=== PATIENT | female | born 1965 | race American Indian/Alaskan Native ===

== ENCOUNTER 2017-03-10 13:49 | Inpatient (IN) | payer MEDICARE ==
[2017-03-10 13:49] VITALS: BMI 38.0
[2017-03-10 13:55] VITALS: O2SAT 98
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
--- NOTE | 2017-03-10 15:12 | RAD ---
HISTORY: clearance COMPARISON: None available. TECHNIQUE: Chest, one view. FINDINGS: LUNGS: No focal consolidation. Please note that chest x-ray has limited sensitivity for the detection of pulmonary masses. PLEURA: No significant pleural effusion identified. No definite pneumothorax . CARDIOVASCULAR: The cardiomediastinal silhouette appears within normal limits of size. OSSEOUS STRUCTURES: No acute osseous abnormality identified. VISUALIZED UPPER ABDOMEN: Unremarkable. OTHER FINDINGS: None. IMPRESSION: No focal consolidation, significant pleural effusion, or definite pneumothorax identified.
[2017-03-10 15:39] LABS: RBC URINE 29 /hpf (0-3); URINE BACTERIA MOD (<OCC); URINE BILIRUBIN SMALL (NEGATIVE); URINE COLOR AMBER (YELLOW); URINE GLUCOSE (UA) NEG (Normal); URINE KETONE TRACE mg/dL (NEGATIVE); URINE PROTEIN 100 mg/dL (NEGATIVE); WBC URINE 58 /hpf (0-5)
[2017-03-10 15:42] LABS: URINE BLOOD MODERATE (NEGATIVE); URINE LEUKOCYTE ESTERASE LARGE Leu/uL (Negative)
[2017-03-10 16:13] LABS: BASO # 0.1 K/uL (0.0-0.2); LYMPH # 2.2 K/uL (1.0-4.3); MONO # 0.4 K/uL (0.0-0.8)
[2017-03-10 16:23] LABS: BASO % 0.9 % (0.0-2.0); EOS % 0.3 % (0.0-4.0); HEMATOCRIT 41.3 % (34.0-47.0); LYMPH % 31.4 % (20.0-40.0); MEAN CELL VOLUME 88.6 fl (81.0-99.0); MEAN CORPUSCULAR HEMOGLOBIN 28.6 pg (27.0-31.0); MEAN CORPUSCULAR HGB CONC 32.2 g/dL (33.0-37.0); MEAN PLATELET VOLUME 9.2 fl (7.2-11.7); MONO % 5.7 % (0.0-10.0); NEUT # 4.3 K/uL (1.8-7.0); NEUT % 61.7 % (50.0-75.0); RED CELL DISTRIBUTION WIDTH 13.9 % (11.5-14.5)
[2017-03-10 17:09] LABS: ALB/GLOB RATIO 1.3 (1.0-2.1); ALCOHOL SERUM < 10 mg/dl (0-10); ALKALINE PHOSPHATASE 62 U/L (38-126); ALT/SGPT 27 U/L (9-52); AST/SGOT 29 U/L (14-36); BILIRUBIN,TOTAL 0.5 mg/dl (0.2-1.3); BLOOD UREA NITROGEN 21 mg/dl (7-17); CALCIUM 10.2 mg/dL (8.4-10.2); CARBON DIOXIDE 25 mmol/L (22-30); CHLORIDE 101 mmol/L (98-107); GFR AFRICAN-AMERICAN 38; GLUCOSE,RANDOM 81 mg/dL (65-105); POTASSIUM 4.9 MMOL/L (3.6-5.0); SODIUM 137 mmol/l (132-148); TOTAL PROTEIN 8.3 G/DL (6.3-8.2)
[2017-03-11] MEDS ORDERED: Magnesium Hydroxide Susp 30 ml UD PO PRN (01:11)
[2017-03-11] MEDS ORDERED: DiphenhydrAMINE 50 mg/ml Inj IM PRN (01:11)
[2017-03-11 07:05] LABS: BASO % 0.9 % (0.0-2.0); EOS # 0.1 K/uL (0.0-0.7); EOS % 1.9 % (0.0-4.0); LYMPH # 2.1 K/uL (1.0-4.3); LYMPH % 47.1 % (20.0-40.0); MEAN CELL VOLUME 88.5 fl (81.0-99.0); MEAN CORPUSCULAR HEMOGLOBIN 28.3 pg (27.0-31.0); MONO # 0.6 K/uL (0.0-0.8); MONO % 14.1 % (0.0-10.0); NEUT # 1.6 K/uL (1.8-7.0); NRBC % 0.2 % (0.0-0.0); RED CELL DISTRIBUTION WIDTH 14.2 % (11.5-14.5); WHITE BLOOD COUNT 4.5 K/uL (4.8-10.8)
[2017-03-11 07:16] LABS: ALB/GLOB RATIO 1.3 (1.0-2.1); BILIRUBIN,TOTAL 0.4 mg/dl (0.2-1.3); CALCIUM 9.5 mg/dL (8.4-10.2); POTASSIUM 4.3 MMOL/L (3.6-5.0); TOTAL PROTEIN 7.1 G/DL (6.3-8.2)
[2017-03-11 07:32] LABS: T4 7.65 ug/dl (5.5-11.0)
[2017-03-11 07:45] LABS: THYROID STIMULATING HORMONE 2.12 mIU/ML (0.46-4.68)
--- NOTE | 2017-03-11 09:01 | PCM.PSYCH ---
Initial Psychiatric Evaluation - Initial Psychiatric Evaluation Type of Admission: Voluntary Legal Status: Capacity Chief Complaint (in patient's own words): "I've been feeling paranoid." Patient's Reaction to Hospitalization: HPI: 51 yo AA female BIB Mobile crisis for evaluation of auditory hallucinations and paranoid delusions. Pt reports hearing a group of people talking, the details of which she does not want to repeat. She told ER staff that she believes people are out to get her, told to her by her TV and that these unknown people put a tracker in her cell phone. +Poor sleep/appetite. She has not taken any medications or treatment since January 2017. When asked which medications she has taken in the past, she could not recall the names, but when asked about Risperdal, she stated that she does not want to take it because it gave her tremors. PPHS: H/o multiple psychiatric hospitalizations to [facility] [place]. Last known medications were Risperdal, Celexa and Cogentin. MHX: HTN, LUPUS All: Aspirin SHX: [employer], [employer] Current Medications: Active Medications Generic Name Dose Route Start Last Admin Trade Name Freq PRN Reason Stop Dose Admin Acetaminophen 650 mg 03/11/17 01:11 Tylenol 325mg Tab PO Q4 PRN for pain 4-7 Al Hydrox/Mg Hydrox/Simethicone 30 ml 03/11/17 01:11 Maalox Plus 30 Ml PO Q4 PRN Dyspepsia Diphenhydramine HCl 50 mg 03/11/17 01:11 Benadryl IM Q6 PRN Extrapyramidal S/S Unable PO Diphenhydramine HCl 50 mg 03/11/17 01:11 Benadryl PO Q6 PRN Extrapyramidal Symptoms Haloperidol 5 mg 03/11/17 01:11 Haldol PO Q4 PRN Agitation Haloperidol Lactate 5 mg 03/11/17 01:11 Haldol IM Q4 PRN Agitation, Unable to Take PO Lorazepam 2 mg 03/11/17 01:11 Ativan IM Q4 PRN Anxiety/Agitation,Unable PO Lorazepam 2 mg 03/11/17 01:11 Ativan PO Q4 PRN Anxiety/Agitation Magnesium Hydroxide 30 ml 03/11/17 01:11 Milk Of Magnesia PO HS PRN Constipation Past Psychiatric History - Past Psychiatric History Previous Treatment History: Inpatient Pertinent Medical Hx (Current Medical&Sleep Prob, Allergies): Allergies Allergy/AdvReac Type Severity Reaction Status Date / Time aspirin AdvReac NAUSEA Verified 03/10/17 14:05 Clotrimazole 1% Cream [Lotrimin 1%] 30 gm EXT BID #1 tube 06/14/14 Hydroxychloroquine Sulfate [Plaquenil] mg PO DAILY 06/14/14 Nifedipine [Nifedipine ER] mg PO DAILY 06/14/14 Omeprazole [Omeprazole] 40 mg PO DAILY 06/14/14 Prednisolone 10 mg PO DAILY 06/14/14 Tramadol Hydrochloride [Tramadol] 50 mg PO PRN PRN 06/14/14 Review of Systems - Review of Systems All systems: reviewed and no additional remarkable complaints except - Psychiatric Psychiatric: As Per HPI, Abnormal Sleep Pattern, Anxiety, Auditory Hallucinations, Difficulty Concentrating, Paranoia Mental Status Examination - Personal Presentation Personal Presentation: Looks stated age - Affect Affect: Constricted - Motor Activity Motor Activity: Calm - Reliability in Providing Information Reliability in Providing Information: Fair - Speech Speech: Organized - Mood Mood: Anxious - Formal Thought Process Formal Thought Process: Hallucinations, Delusions, Paranoia - Hallucinations/Delusions Hallucinations: Auditory - Obsessions/Compulsions Obsessions: No Compulsions: No - Cognitive Functions Orientation: Person, Place, Situation, Time Sensorium: Alert Attention/Concentration: Attentive Judgement: Intact, as evidence by: Good judgement, Intact, as evidence by: Insight regarding need for hospitalization Memory: Recent intact, as evidence by: Ability to recall events of the day, Remote intact, as evidenced by: Abilit to recall sig. life events, Remote intact , as evidenced by: Ability to recall historical events - Risk Risk: Diminished functioning - Strength & Assets Inventory Strength & Assets Inventory: Cooperative DSM 5 DX - DSM 5 DSM 5 Diagnosis: Schizoaffective Disorder - Recommended/Plan of Treatment Treatment Recommendations and Plan of Treatment: -Admit to psychiatry -Individual and group therapy -Start Seroquel 50 mg PO Daily, will titrate as clinically indicated -Obtain collateral history -Disposition planning Projected ELOS: 5-7 days Discharge Plan and Discharge Criteria: Discharge when psychiatrically stable
--- NOTE | 2017-03-11 14:28 | CP.PCM.CON ---
History of Present Illness - History of Present Illness History of Present Illness: 51 yo female with history of Depression and Lupus admitted to psyche unit because of auditory hallucination. Review of Systems - Review of Systems All systems: reviewed and no additional remarkable complaints except (aside from those mentioned above, 12 point system review were negative by me) Past Patient History - Infectious Disease Hx of Infectious Diseases: None - Tetanus Immunizations Tetanus Immunization: Unknown - Past Medical History & Family History Past Medical History?: No Past Family History: Reviewed and not pertinent - Past Social History Smoking Status: Never Smoked Chewing Tobacco Use: No Cigar Use: No Alcohol: None Drugs: Denies - CARDIAC Hx Cardiac Disorders: No Hx Hypertension: Yes - PULMONARY Hx Respiratory Disorders: No - NEUROLOGICAL Hx Neurological Disorder: No - HEENT Hx HEENT Problems: No - RENAL Hx Chronic Kidney Disease: Yes - ENDOCRINE/METABOLIC Hx Endocrine Disorders: No Hx Systemic Lupus Erythematosus: Yes - HEMATOLOGICAL/ONCOLOGICAL Hx Blood Disorders: No - INTEGUMENTARY Hx Dermatological Problems: No - MUSCULOSKELETAL/RHEUMATOLOGICAL Hx Musculoskeletal Disorders: No - GASTROINTESTINAL Hx Gastritis: Yes - GENITOURINARY/GYNECOLOGICAL Hx Genitourinary Disorders: No - PSYCHIATRIC Hx Anxiety: Yes Hx Depression: Yes - SURGICAL HISTORY Hx Hysterectomy: Yes Meds Allergies/Adverse Reactions: Allergies Allergy/AdvReac Type Severity Reaction Status Date / Time aspirin AdvReac NAUSEA Verified 03/10/17 14:05 - Medications Medications: Current Medications Acetaminophen (Tylenol 325mg Tab) 650 mg PO Q4 PRN PRN Reason: for pain 4-7 Al Hydrox/Mg Hydrox/Simethicone (Maalox Plus 30 Ml) 30 ml PO Q4 PRN PRN Reason: Dyspepsia Diphenhydramine HCl (Benadryl) 50 mg IM Q6 PRN PRN Reason: Extrapyramidal S/S Unable PO Diphenhydramine HCl (Benadryl) 50 mg PO Q6 PRN PRN Reason: Extrapyramidal Symptoms Haloperidol (Haldol) 5 mg PO Q4 PRN PRN Reason: Agitation Haloperidol Lactate (Haldol) 5 mg IM Q4 PRN PRN Reason: Agitation, Unable to Take PO Lorazepam (Ativan) 2 mg IM Q4 PRN PRN Reason: Anxiety/Agitation,Unable PO Lorazepam (Ativan) 2 mg PO Q4 PRN PRN Reason: Anxiety/Agitation Magnesium Hydroxide (Milk Of Magnesia) 30 ml PO HS PRN PRN Reason: Constipation Physical Exam - Constitutional Appears: No Acute Distress - Head Exam Head Exam: ATRAUMATIC - Eye Exam Eye Exam: absent: Scleral icterus - ENT Exam ENT Exam: Mucous Membranes Moist - Neck Exam Neck exam: Negative for: Meningismus - Respiratory Exam Respiratory Exam: absent: Rhonchi, Wheezes, Respiratory Distress - Cardiovascular Exam Cardiovascular Exam: REGULAR RHYTHM, +S1, +S2 - GI/Abdominal Exam GI & Abdominal Exam: Soft. absent: Tenderness - Rectal Exam Rectal Exam: Deferred - Extremities Exam Extremities exam: Negative for: pedal edema - Back Exam Back exam: NORMAL INSPECTION - Neurological Exam Neurological exam: Alert, Oriented x3 - Psychiatric Exam Psychiatric exam: Normal Affect - Skin Skin Exam: Dry, Intact Results - Vital Signs Recent Vital Signs: Last Vital Signs Temp 97.1 F L 03/11/17 06:00 Pulse 81 03/11/17 06:00 Resp 18 03/11/17 06:00 BP 127/84 03/11/17 06:00 Pulse Ox 98 03/10/17 18:30 - Labs Result Diagrams: 03/11/17 06:53 03/11/17 06:53 Labs: Laboratory Results - last 24 hr 03/11/17 03/11/17 06:53 06:53 WBC 4.5 L RBC 4.40 Hgb 12.5 Hct 39.0 MCV 88.5 MCH 28.3 MCHC 32.0 L RDW 14.2 Plt Count 258 MPV 9.0 Neut % (Auto) 36.0 L Lymph % (Auto) 47.1 H Alcorn % (Auto) 14.1 H Eos % (Auto) 1.9 Baso % (Auto) 0.9 Neut # 1.6 L Lymph # 2.1 Alcorn # 0.6 Eos # 0.1 Baso # 0.0 Sodium 137 Potassium 4.3 Chloride 104 Carbon Dioxide 24 Anion Gap 13 BUN 28 H Creatinine 1.6 H Est GFR ( Amer) 41 Est GFR (Non-Af Amer) 34 Random Glucose 92 Calcium 9.5 Total Bilirubin 0.4 AST 28 ALT 27 Alkaline Phosphatase 48 Total Protein 7.1 Albumin 4.0 Globulin 3.1 Albumin/Globulin Ratio 1.3 Thyroxine (T4) 7.65 TSH 3rd Generation 2.12 Assessment & Plan (1) Auditory hallucination Status: Acute Comment: psyche is managing (2) HTN (hypertension) Status: Chronic Comment: BP stable. continue Losartan and HCTZ
--- NOTE | 2017-03-11 19:13 | CARD ---
APPROVED REPORT EKG Measurement Heart [id number] <Conclusion> Normal sinus rhythm Normal ECG
[2017-03-12] MEDS: NIFEdipine 90 mg ER Tab PO SCH (08:40)
--- NOTE | 2017-03-12 13:38 | PCM.PYCHPN ---
Psychiatric Progress Note - Psychiatric Progress Note Patient seen today, length of contact: Patient evaluated, case discussed with team, chart reviewed, 35 min Patient Chief Complaint: "I'm hearing the voices" Problems Identified/Issues Discussed: Patient continues to report hearing auditory hallucinations, but she would not elaborate on what they are saying. She seems internally preoccupied at times. She is distressed by her psychotic symptoms and requests treatment to help calm the voices. Medication Change: Yes (Increase Seroquel to 50 mg PO Q12) Medical Record Reviewed: Yes Consults ordered or reviewed: Medicine consult Mental Status Examination - Cognitive Function Orientation: Person, Place, Situation, Time Memory: Intact Attention: WNL Concentration: WNL Association: WNL Fund of Knowledge: [facility] Decription of patient's judgement and insights: Fair I/J - Mood Mood: Anxious - Affect Affect: Constricted - Speech Speech: Appropriate - Formal Thought Process Formal Thought Process: Hallucinations, Delusions, Paranoia Psychotic Thoughts and Behaviors: +AH, paranoia - Suicidal Ideation Suicidal Ideation: No - Homicidal Ideation Homicidal Ideation: No Goal/Treatment Plan - Goal/Treatment Plan Need for Continued Stay: Remain at risks for inpatient hospitalization, Discharge may exacerbated symptoms Progress Toward Problem(s) and Goals/Treatment Plan: -Individual and group therapy -Increase Seroquel to 50 mg PO Q12 -Obtain collateral history -Disposition planning
[2017-03-12] MEDS: Alum-Mag Hydrox-Simethicone Susp (30 mL) PO PRN (21:15)
[2017-03-13] MEDS: NIFEdipine 90 mg ER Tab PO SCH (09:36)
--- NOTE | 2017-03-13 10:53 | PCM.PYCHPN ---
Psychiatric Progress Note - Psychiatric Progress Note Patient seen today, length of contact: Patient evaluated, case discussed with team, chart reviewed, 35 min Patient Chief Complaint: "I'm hearing the voices, but they are muffled now" Problems Identified/Issues Discussed: Patient continues to report hearing auditory hallucinations, but states that they are muffled. She continues to be psychotic and has told staff about her continued hallucinations, which she believes are her past neighbors that she continues to have paranoid delusions about. She continues to be cooperative with treatment as she would like to get help because she is depressed and distressed by her psychotic symptoms. She seems internally preoccupied at times and spends most of her day isolated in her room, despite encouragement from staff. Medication Change: Yes (Increase Seroquel to 50 mg PO Daily/ 100 mg PO HS) Medical Record Reviewed: Yes Consults ordered or reviewed: Medicine consult Mental Status Examination - Cognitive Function Orientation: Person, Place, Situation, Time Memory: Intact Attention: WNL Concentration: WNL Association: [facility] Fund of Knowledge: [facility] Decription of patient's judgement and insights: Fair I/J - Mood Mood: Anxious - Affect Affect: Constricted - Speech Speech: Appropriate - Formal Thought Process Formal Thought Process: Hallucinations, Delusions, Paranoia Psychotic Thoughts and Behaviors: +AH, paranoia, delusions - Suicidal Ideation Suicidal Ideation: No - Homicidal Ideation Homicidal Ideation: No Goal/Treatment Plan - Goal/Treatment Plan Need for Continued Stay: Remain at risks for inpatient hospitalization, Discharge may exacerbated symptoms Progress Toward Problem(s) and Goals/Treatment Plan: 51 yo female with psychosis, r/o schizophrenia w/ late onset, continues to be psychotic with auditory hallucinations, paranoia and delusions, needs continued inpatient hospitalization for treatment and stabilization. -Individual and group therapy -Increase Seroquel to 50 mg PO Daily/ 100 mg PO HS -Medicine consult appreciated Estimated Date of D/C: 03/19/17 - Smoking Cessation Smoking Cessation Initiated: No Reason for not providing: Not indicated
[2017-03-14] MEDS: NIFEdipine 90 mg ER Tab PO SCH (09:04)
--- NOTE | 2017-03-14 10:05 | PCM.PYCHPN ---
Psychiatric Progress Note - Psychiatric Progress Note Patient seen today, length of contact: Patient evaluated, case discussed with team, chart reviewed, 35 min Patient Chief Complaint: "I'm hearing the voices" Problems Identified/Issues Discussed: Patient continues to report hearing auditory hallucinations, which she finds distressing. She continues to be psychotic and has told staff about her continued hallucinations, which she believes are her past neighbors that she continues to have paranoid delusions about. She continues to be cooperative with treatment and has requested that the seroquel be increased. r/b/se reviewed, patient given a handout with information on seroquel. She seems internally preoccupied at times and spends most of her day isolated in her room , despite encouragement from staff. Medication Change: Yes (Increase Seroquel to 50 mg PO Daily/ 200 mg PO HS) Medical Record Reviewed: Yes Mental Status Examination - Cognitive Function Orientation: Person, Place, Situation, Time Memory: Intact Attention: WNL Concentration: WNL Association: WNL Fund of Knowledge: [facility] Decription of patient's judgement and insights: Fair I/J - Mood Mood: Anxious - Affect Affect: Constricted - Speech Speech: Appropriate - Formal Thought Process Formal Thought Process: Hallucinations, Delusions, Paranoia Psychotic Thoughts and Behaviors: +AH, paranoia, delusions - Suicidal Ideation Suicidal Ideation: No - Homicidal Ideation Homicidal Ideation: No Goal/Treatment Plan - Goal/Treatment Plan Need for Continued Stay: Remain at risks for inpatient hospitalization, Discharge may exacerbated symptoms Progress Toward Problem(s) and Goals/Treatment Plan: 51 yo female with psychosis, r/o schizophrenia w/ late onset, continues to be psychotic with auditory hallucinations, paranoia and delusions, needs continued inpatient hospitalization for treatment and stabilization. -Individual and group therapy -Increase Seroquel to 50 mg PO Daily/ 200 mg PO HS -Medicine consult appreciated Estimated Date of D/C: 03/19/17 - Smoking Cessation Smoking Cessation Initiated: No Reason for not providing: Not indicated
[2017-03-15] MEDS: NIFEdipine 90 mg ER Tab PO SCH (09:27)
--- NOTE | 2017-03-15 13:06 | PCM.PYCHPN ---
Psychiatric Progress Note - Psychiatric Progress Note Patient seen today, length of contact: Patient evaluated, case discussed with team, chart reviewed, 35 min Patient Chief Complaint: "I'm hearing the voices" Problems Identified/Issues Discussed: Patient continues to report hearing auditory hallucinations, stating that she is hearing them as she speaks to the handbook writer and that they often make rude remarks when she is talking. She is paranoid that her neighbors can hear her and refused to discuss certain things. She is also paranoid that there are cameras in the hospital, that have been tapped by her neighbors and they can observe everything she says and does, which is why she has started to wear her clothes all the time. She seems internally preoccupied at times and spends most of her day isolated in her room, despite encouragement from staff. Medication Change: Yes (Increase Seroquel to 50 mg PO Daily/ 250 mg PO HS) Medical Record Reviewed: Yes Mental Status Examination - Cognitive Function Orientation: Person, Place, Situation, Time Memory: Intact Attention: WNL Concentration: WNL Association: WNL Fund of Knowledge: [facility] Decription of patient's judgement and insights: Fair I/J - Mood Mood: Anxious - Affect Affect: Constricted - Speech Speech: Appropriate - Formal Thought Process Formal Thought Process: Hallucinations, Delusions, Paranoia Psychotic Thoughts and Behaviors: +AH, paranoia, delusions - Suicidal Ideation Suicidal Ideation: No - Homicidal Ideation Homicidal Ideation: No Goal/Treatment Plan - Goal/Treatment Plan Need for Continued Stay: Remain at risks for inpatient hospitalization, Discharge may exacerbated symptoms Progress Toward Problem(s) and Goals/Treatment Plan: 51 yo female with psychosis, r/o schizophrenia w/ late onset, continues to be psychotic with auditory hallucinations, paranoia and delusions, needs continued inpatient hospitalization for treatment and stabilization. -Individual and group therapy -Increase Seroquel to 50 mg PO Daily/ 250 mg PO HS -Medicine consult appreciated Estimated Date of D/C: 03/19/17
[2017-03-16] MEDS: NIFEdipine 90 mg ER Tab PO SCH (08:58)
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
[2017-03-16 12:26] LABS: ALB/GLOB RATIO 1.3 (1.0-2.1); BILIRUBIN,TOTAL 0.5 mg/dl (0.2-1.3); CALCIUM 9.2 mg/dL (8.4-10.2); POTASSIUM 4.1 MMOL/L (3.6-5.0); TOTAL PROTEIN 7.3 G/DL (6.3-8.2)
[2017-03-17] MEDS: NIFEdipine 90 mg ER Tab PO SCH (09:21)
--- NOTE | 2017-03-17 15:28 | PCM.PYCHPN ---
Psychiatric Progress Note - Psychiatric Progress Note Patient seen today, length of contact: Pt. evaluated, case discussed with team, chart reviewed, 35 min Patient Chief Complaint: reports better sleep, questionable improvment voices-commentary -seen seated in social area watching tv with peers over past six months since leaving a room she had rented for 4 months (left 2months early from lease) feels as though the persons who rented room have placed a camera in her (pt) phone and tracking her including place camera on current 3ns unit. reports hearing a group of people talking about her, commentary, non command reports voices are getting stronger, reports previously took risperdal and legs began to shake. currently reports that legs are again shaking with seroquel. does wish to continue medications but did defer am seroquel until speaking with provider. pt was seen in unit, walking, did reportedly eat, now was seen laying in bed Problems Identified/Issues Discussed: alteration in perception alteration in thought process Medical Problems: per chart Diagnostic Results: per medicine per psychiatry per social services analyst DSM 5 Symptoms Update: continues commentary voices- Medication Change: No Medical Record Reviewed: Yes Mental Status Examination - Cognitive Function Orientation: Person, Place, Situation, Time Memory: Intact Attention: Poor Concentration: Poor Association: WNL Fund of Knowledge: WNL Decription of patient's judgement and insights: impaired - Mood Mood: Anxious - Affect Affect: Constricted - Speech Speech: Appropriate - Formal Thought Process Formal Thought Process: Hallucinations, Delusions, Paranoia - Suicidal Ideation Suicidal Ideation: No - Homicidal Ideation Homicidal Ideation: No Goal/Treatment Plan - Goal/Treatment Plan Need for Continued Stay: Remain at risks for inpatient hospitalization, Discharge may exacerbated symptoms Progress Toward Problem(s) and Goals/Treatment Plan: inpt milieu vital signs/clinical observation per status and per protocol continue to monitor consider increase seroquel team get up slowly adjust meds per status discharge planning in progress Estimated Date of D/C: 03/19/17 - Smoking Cessation Smoking Cessation Initiated: No Reason for not providing: deferred
[2017-03-18] MEDS: Alum-Mag Hydrox-Simethicone Susp (30 mL) PO PRN (02:51)
--- NOTE | 2017-03-18 09:25 | PCM.PYCHPN ---
Psychiatric Progress Note - Psychiatric Progress Note Patient seen today, length of contact: Chart reviewed, case discussed with team , patient evaluated, 35 min Patient Chief Complaint: "I think they put a camera in here." Problems Identified/Issues Discussed: Patient continues to be delusional, stating that she is convinced that her neighbors placed cameras in the hospital. She also believes that she has a cold because she did not wear her head scarf yesterday and the cold came in through her skull. She continues to have intermittent AH. She seems internally preoccupied at times and spends most of her day isolated in her room , despite encouragement from staff. Medication Change: Yes (Seroquel 50 mg PO AM/300 mg PO HS; Lower Cogentin to 0.5 mg PO Q12) Medical Record Reviewed: Yes Mental Status Examination - Cognitive Function Orientation: Person, Place, Situation, Time Memory: Intact Attention: Poor Concentration: Poor Association: WNL Fund of Knowledge: WNL Decription of patient's judgement and insights: Poor to fair insight/ fair judgment - Mood Mood: Anxious - Affect Affect: Constricted - Speech Speech: Appropriate - Formal Thought Process Formal Thought Process: Hallucinations, Delusions, Paranoia Psychotic Thoughts and Behaviors: +Delusions, AH - Suicidal Ideation Suicidal Ideation: No - Homicidal Ideation Homicidal Ideation: No Goal/Treatment Plan - Goal/Treatment Plan Need for Continued Stay: Remain at risks for inpatient hospitalization, Discharge may exacerbated symptoms Progress Toward Problem(s) and Goals/Treatment Plan: 51 yo female with psychosis, r/o schizophrenia w/ late onset, continues to be psychotic with auditory hallucinations, paranoia and delusions, needs continued inpatient hospitalization for treatment and stabilization. -Individual and group therapy -Increase Seroquel to 50 mg PO Daily/ 300 mg PO HS -Medicine consult appreciated -Lower Cogentin to 0.5 mg PO Q12 Estimated Date of D/C: 03/22/17
[2017-03-18] MEDS: NIFEdipine 90 mg ER Tab PO SCH (10:35)
[2017-03-18] MEDS: QUEtiapine 300 MG TABLET PO SCH (21:05)
[2017-03-19] MEDS: NIFEdipine 90 mg ER Tab PO SCH (08:42)
--- NOTE | 2017-03-19 14:11 | PCM.PYCHPN ---
Psychiatric Progress Note - Psychiatric Progress Note Patient seen today, length of contact: Chart reviewed, case discussed with team , patient evaluated, 35 min Patient Chief Complaint: "I'm hearing the voices less" Problems Identified/Issues Discussed: Patient continues to be delusional, paranoid, with auditory hallucinations, which she states are less than before. Her insight into her psychosis fluctuates from recognizing that she may be psychotic to being completely preoccupied by her psychosis. She seems internally preoccupied at times and spends most of her day isolated in her room, despite encouragement from staff. Medication Change: No Medical Record Reviewed: Yes Mental Status Examination - Cognitive Function Orientation: Person, Place, Situation, Time Memory: Intact Attention: Poor Concentration: Poor Association: WNL Fund of Knowledge: WNL Decription of patient's judgement and insights: Poor to fair insight/ fair judgment - Mood Mood: Anxious - Affect Affect: Constricted - Speech Speech: Appropriate - Formal Thought Process Formal Thought Process: Hallucinations, Delusions, Paranoia Psychotic Thoughts and Behaviors: +Delusions, AH - Suicidal Ideation Suicidal Ideation: No - Homicidal Ideation Homicidal Ideation: No Goal/Treatment Plan - Goal/Treatment Plan Need for Continued Stay: Remain at risks for inpatient hospitalization, Discharge may exacerbated symptoms Progress Toward Problem(s) and Goals/Treatment Plan: 51 yo female with psychosis, r/o schizophrenia w/ late onset, continues to be psychotic with auditory hallucinations, paranoia and delusions, needs continued inpatient hospitalization for treatment and stabilization. -Individual and group therapy -Continue Seroquel 50 mg PO Daily/ 300 mg PO HS -Medicine consult appreciated -Continue Cogentin to 0.5 mg PO Q12 Estimated Date of D/C: 03/22/17
[2017-03-19] MEDS: QUEtiapine 300 MG TABLET PO SCH (21:12)
[2017-03-20] MEDS: NIFEdipine 90 mg ER Tab PO SCH (08:53)
--- NOTE | 2017-03-20 13:39 | PCM.PYCHPN ---
Psychiatric Progress Note - Psychiatric Progress Note Patient seen today, length of contact: Chart reviewed, case discussed with team , patient evaluated, 35 min Patient Chief Complaint: "I'm sure there are cameras here" Problems Identified/Issues Discussed: Patient is distressed because the voices are not going away. We discussed the possibility that chronic steroid use my be worsening the psychosis. We discussed increasing the Seroquel. Patient reports that she does not feel safe returning to her previous home due to continued paranoia delusions and delusions of persecution. Medication Change: Yes (Increase Seroquel to 50 mg PO AM/ 350 mg PO HS) Medical Record Reviewed: Yes Mental Status Examination - Cognitive Function Orientation: Person, Place, Situation, Time Memory: Intact Attention: Poor Concentration: Poor Association: WNL Fund of Knowledge: WNL Decription of patient's judgement and insights: Poor to fair insight/ fair judgment - Mood Mood: Anxious - Affect Affect: Constricted - Speech Speech: Appropriate - Formal Thought Process Formal Thought Process: Hallucinations, Delusions, Paranoia Psychotic Thoughts and Behaviors: +Delusions, AH - Suicidal Ideation Suicidal Ideation: No - Homicidal Ideation Homicidal Ideation: No Goal/Treatment Plan - Goal/Treatment Plan Need for Continued Stay: Remain at risks for inpatient hospitalization, Discharge may exacerbated symptoms Progress Toward Problem(s) and Goals/Treatment Plan: 51 yo female with psychosis, r/o schizophrenia w/ late onset, continues to be psychotic with auditory hallucinations, paranoia and delusions, needs continued inpatient hospitalization for treatment and stabilization. -Individual and group therapy -Increase Seroquel to 50 mg PO Daily/ 350 mg PO HS -Hold Prednisone as per medicine recommendations as this could be causing/ worsening her psychosis -Medicine consult appreciated -Continue Cogentin to 0.5 mg PO Q12 Estimated Date of D/C: 03/22/17
[2017-03-20] MEDS: Alum-Mag Hydrox-Simethicone Susp (30 mL) PO PRN (15:09)
[2017-03-20] MEDS: QUEtiapine 300 MG TABLET PO SCH (21:09)
[2017-03-21] MEDS: NIFEdipine 90 mg ER Tab PO SCH (09:39)
--- NOTE | 2017-03-21 12:19 | PCM.PYCHPN ---
Psychiatric Progress Note - Psychiatric Progress Note Patient seen today, length of contact: Chart reviewed, case discussed with team , patient evaluated, 35 min Patient Chief Complaint: "I'm still hearing voices." Problems Identified/Issues Discussed: Patient continues to reports auditory hallucinations. She states that they are worse when she leaves her room and goes to the hallway. She continues to have fluctuating insight into her psychotic symptoms. Medication Change: Yes (Increase Seroquel to 50 mg PO AM/ 400 mg PO HS) Medical Record Reviewed: Yes Mental Status Examination - Cognitive Function Orientation: Person, Place, Situation, Time Memory: Intact Attention: Poor Concentration: Poor Association: WNL Fund of Knowledge: WNL Decription of patient's judgement and insights: Poor to fair insight/ fair judgment - Mood Mood: Anxious - Affect Affect: Constricted - Speech Speech: Appropriate - Formal Thought Process Formal Thought Process: Hallucinations, Delusions, Paranoia Psychotic Thoughts and Behaviors: +Delusions, AH - Suicidal Ideation Suicidal Ideation: No - Homicidal Ideation Homicidal Ideation: No Goal/Treatment Plan - Goal/Treatment Plan Need for Continued Stay: Remain at risks for inpatient hospitalization, Discharge may exacerbated symptoms Progress Toward Problem(s) and Goals/Treatment Plan: 51 yo female with psychosis, r/o schizophrenia w/ late onset, continues to be psychotic with auditory hallucinations, paranoia and delusions, needs continued inpatient hospitalization for treatment and stabilization. -Individual and group therapy -Increase Seroquel to 50 mg PO Daily/ 400 mg PO HS -Hold Prednisone as per medicine recommendations as this could be causing/ worsening her psychosis -Medicine consult appreciated -Continue Cogentin to 0.5 mg PO Q12 Estimated Date of D/C: 03/25/17
[2017-03-22] MEDS: NIFEdipine 90 mg ER Tab PO SCH (08:57)
--- NOTE | 2017-03-22 11:16 | PCM.PYCHPN ---
Psychiatric Progress Note - Psychiatric Progress Note Patient seen today, length of contact: Chart reviewed, case discussed with team , patient evaluated, 35 min Patient Chief Complaint: "I'm still hearing voices." Problems Identified/Issues Discussed: Patient continues to reports auditory hallucinations, but states they are less frequent. She continues to be isolative and stays in her room in the bed most of the day, despite encouragement from staff. She continues to have fluctuating insight into her psychotic symptoms. Medication Change: Yes (Increase Seroquel to 100 mg PO AM/ 400 mg PO HS) Medical Record Reviewed: Yes Mental Status Examination - Cognitive Function Orientation: Person, Place, Situation, Time Memory: Intact Attention: WNL Concentration: WNL Association: WNL Fund of Knowledge: WN Decription of patient's judgement and insights: Poor to fair insight/ fair judgment - Mood Mood: Anxious - Affect Affect: Constricted - Speech Speech: Appropriate - Formal Thought Process Formal Thought Process: Hallucinations, Delusions, Paranoia Psychotic Thoughts and Behaviors: +Delusions, AH - Suicidal Ideation Suicidal Ideation: No - Homicidal Ideation Homicidal Ideation: No Goal/Treatment Plan - Goal/Treatment Plan Need for Continued Stay: Remain at risks for inpatient hospitalization, Discharge may exacerbated symptoms Progress Toward Problem(s) and Goals/Treatment Plan: 51 yo female with psychosis, r/o schizophrenia w/ late onset, continues to be psychotic with auditory hallucinations, paranoia and delusions, needs continued inpatient hospitalization for treatment and stabilization. -Individual and group therapy -Increase Seroquel to 100 mg PO Daily/ 400 mg PO HS -Hold Prednisone as per medicine recommendations as this could be causing/ worsening her psychosis -Medicine consult appreciated -Continue Cogentin to 0.5 mg PO Q12 Estimated Date of D/C: 03/25/17
[2017-03-23] MEDS: NIFEdipine 90 mg ER Tab PO SCH (09:32)
--- NOTE | 2017-03-23 09:53 | PCM.PYCHPN ---
Psychiatric Progress Note - Psychiatric Progress Note Patient seen today, length of contact: Chart reviewed, case discussed with team , patient evaluated, 35 min Patient Chief Complaint: pt is still internally preoccupied and still hallucinating and still paranoid and need further stabilization. Medication Change: Yes (Increase Seroquel to 100 mg PO AM/ 400 mg PO HS) Medical Record Reviewed: Yes Mental Status Examination - Cognitive Function Orientation: Person, Place, Situation, Time Memory: Intact Attention: WNL Concentration: WNL Association: WNL Fund of Knowledge: WNL - Mood Mood: Anxious - Affect Affect: Constricted - Speech Speech: Appropriate - Formal Thought Process Formal Thought Process: Hallucinations, Delusions, Paranoia - Suicidal Ideation Suicidal Ideation: No - Homicidal Ideation Homicidal Ideation: No Goal/Treatment Plan - Goal/Treatment Plan Need for Continued Stay: Remain at risks for inpatient hospitalization, Discharge may exacerbated symptoms Estimated Date of D/C: 03/25/17
[2017-03-24] MEDS: NIFEdipine 90 mg ER Tab PO SCH (09:00)
--- NOTE | 2017-03-24 15:15 | CP.PCM.PCO ---
Physician Communication Note - Physician Communication Note Physician Communication Note: Rapid Influenza and Strep Tests were negative
[2017-03-25] MEDS: NIFEdipine 90 mg ER Tab PO SCH (08:18)
--- NOTE | 2017-03-25 10:40 | PCM.PYCHPN ---
Psychiatric Progress Note - Psychiatric Progress Note Patient seen today, length of contact: Chart reviewed, case discussed with team , patient evaluated, 35 min Patient Chief Complaint: "I'm still hearing voices." Problems Identified/Issues Discussed: Patient continues to reports auditory hallucinations, but states they are less frequent. She is distressed by her paranoid ideation and states that she will likely have to leave the state. She is agreeable to staying a few more days to attempt to cross taper her medications with Zyprexa. Risks/benefits adverse effects reviewed. She continues to be isolative and stays in her room in the bed most of the day, despite encouragement from staff. She continues to have fluctuating insight into her psychotic symptoms. Medication Change: Yes (Cross taper Seroquel and Zyprexa) Medical Record Reviewed: Yes Mental Status Examination - Cognitive Function Orientation: Person, Place, Situation, Time Memory: Intact Attention: WNL Concentration: WNL Association: [facility] Fund of Knowledge: [facility] Decription of patient's judgement and insights: Poor to fair insight/ judgment - Mood Mood: Anxious - Affect Affect: Constricted - Speech Speech: Appropriate - Formal Thought Process Formal Thought Process: Hallucinations, Delusions, Paranoia Psychotic Thoughts and Behaviors: +AH, +Paranoid delusions - Suicidal Ideation Suicidal Ideation: No - Homicidal Ideation Homicidal Ideation: No Goal/Treatment Plan - Goal/Treatment Plan Need for Continued Stay: Remain at risks for inpatient hospitalization, Discharge may exacerbated symptoms Progress Toward Problem(s) and Goals/Treatment Plan: 51 yo female with psychosis, r/o medical cause of psychotic symptoms as her presentation is not entirely consistent with a primary psychotic disorder, continues to be psychotic with auditory hallucinations, paranoia and delusions, needs continued inpatient hospitalization for treatment and stabilization. -Individual and group therapy -Cross taper Seroquel and Zyprexa -Hold Prednisone as per medicine recommendations as this could be causing/ worsening her psychosis -Medicine consult appreciated -Continue Cogentin to 0.5 mg PO Q12 -Neurology consult- Patient has a history of lupus and very late onset of psychotic symptoms, which are not responding to antipsychotic treatment, could be secondary to a primary psychotic disorder vs chronic steroid use (prednisone on hold) vs neurological/organic cause of psychosis; would appreciate neurology input Estimated Date of D/C: 03/28/17
--- NOTE | 2017-03-25 17:18 | CP.PCM.CON ---
History of Present Illness - History of Present Illness History of Present Illness: Mrs. Fernando is a 51-year-old woman with SLE who was on 20 mg of prednisone, but for the last month, she has been on 10 mg, and was relatively stable. 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 The reason she currently admitted for psychiatric evaluation is because she has been hearing voices that are mostly commenting on her body, and make statements about harming her and her family. She is aware that these are not real and requested help. Prednisone has been held for the last 4 days and Seroquel was started, but the voices are still present as of this morning. Neurology was consulted to assist with the management and care. When I saw the patient, she denied any active auditory hallucinations. Review of Systems - Review of Systems All systems: reviewed and no additional remarkable complaints except Past Patient History - Infectious Disease Hx of Infectious Diseases: None - Tetanus Immunizations Tetanus Immunization: Unknown - Past Medical History & Family History Past Medical History?: No Past Family History: Reviewed and not pertinent - Past Social History Smoking Status: Never Smoked Chewing Tobacco Use: No Cigar Use: No Alcohol: None Drugs: Denies - CARDIAC Hx Cardiac Disorders: No Hx Hypertension: Yes - PULMONARY Hx Respiratory Disorders: No - NEUROLOGICAL Hx Neurological Disorder: No - HEENT Hx HEENT Problems: No - RENAL Hx Chronic Kidney Disease: Yes - ENDOCRINE/METABOLIC Hx Endocrine Disorders: No Hx Systemic Lupus Erythematosus: Yes - HEMATOLOGICAL/ONCOLOGICAL Hx Blood Disorders: No - INTEGUMENTARY Hx Dermatological Problems: No - MUSCULOSKELETAL/RHEUMATOLOGICAL Hx Musculoskeletal Disorders: No - GASTROINTESTINAL Hx Gastritis: Yes - GENITOURINARY/GYNECOLOGICAL Hx Genitourinary Disorders: No - PSYCHIATRIC Hx Anxiety: Yes Hx Depression: Yes - SURGICAL HISTORY Hx Hysterectomy: Yes Meds Allergies/Adverse Reactions: Allergies Allergy/AdvReac Type Severity Reaction Status Date / Time aspirin AdvReac NAUSEA Verified 03/10/17 14:05 - Medications Medications: Current Medications Acetaminophen (Tylenol 325mg Tab) 650 mg PO Q4 PRN PRN Reason: for pain 4-7 Last Admin: 03/21/17 12:43 Dose: 650 mg Al Hydrox/Mg Hydrox/Simethicone (Maalox Plus 30 Ml) 30 ml PO Q4 PRN PRN Reason: Dyspepsia Last Admin: 03/20/17 15:09 Dose: 30 ml Benztropine Mesylate (Cogentin) 0.5 mg PO Q12 [facility] Last Admin: 03/25/17 08:17 Dose: 0.5 mg Clotrimazole (Lotrimin 1% Cream) 1 applic EXT BID [facility] Last Admin: 03/25/17 16:35 Dose: Not Given Hydrochlorothiazide (Microzide) 12.5 mg PO DAILY [facility] Last Admin: 03/25/17 08:18 Dose: 12.5 mg Hydroxychloroquine Sulfate (Plaquenil) 200 mg PO DAILY [facility] Last Admin: 03/25/17 08:19 Dose: 200 mg Lorazepam (Ativan) 0.5 mg IM Q6 PRN PRN Reason: Agitation Lorazepam (Ativan) 0.5 mg PO Q6 PRN PRN Reason: Other Last Admin: 03/20/17 02:11 Dose: 0.5 mg Losartan Potassium (Cozaar) 50 mg PO DAILY [facility] Last Admin: 03/25/17 08:17 Dose: 50 mg Magnesium Hydroxide (Milk Of Magnesia) 30 ml PO HS PRN PRN Reason: Constipation Nifedipine (Procardia Xl) 90 mg PO DAILY [facility] Last Admin: 03/25/17 08:18 Dose: 90 mg Olanzapine (Zyprexa) 10 mg PO HS [facility] Olanzapine (Zyprexa) 5 mg PO DAILY [facility] Prednisone (Prednisone Tab) 10 mg PO DAILY [facility] Last Admin: 03/25/17 12:10 Dose: Not Given Physical Exam - Constitutional Appears: Well - Head Exam Head Exam: ATRAUMATIC, NORMAL INSPECTION, NORMOCEPHALIC - Eye Exam Eye Exam: EOMI, Normal appearance, PERRL - ENT Exam ENT Exam: Mucous Membranes Moist, Normal Exam - Respiratory Exam Respiratory Exam: Clear to Auscultation Bilateral, NORMAL BREATHING PATTERN - Cardiovascular Exam Cardiovascular Exam: REGULAR RHYTHM, +S1, +S2 - GI/Abdominal Exam GI & Abdominal Exam: Normal Bowel Sounds, Soft. absent: Tenderness - Rectal Exam Rectal Exam: NORMAL INSPECTION - Neurological Exam Neurological exam: Alert, CN II-XII Intact, Normal Gait, Oriented x3, Reflexes Normal - Expanded Neurological Exam Expanded Patient oriented to: person, place, time Cranial nerves: EOM's Intact: Normal, Facial Sensation: Normal, Nystagmus: Normal Cerebellar Function: Finger to Nose: Normal Upper motor neuron: Babinski Sign: Normal Sensory exam: Lower Extremity Light Touch: Normal, Lower Extremity Pin Prick: Normal, Upper Extremity Light Touch: Normal, Upper Extremity Pin Prick: Normal Neuro motor strength exam: Left Upper Extremity: 5, Right Upper Extremity: 5, Left Lower Extremity: 5, Right Lower Extremity: 5 DTR: Achilles Tendon Left: 2+, Achilles Tendon Right: 2+, Bicep Left: 2+, Bicep Right: 2+, Brachioradialis Left: 2+, Brachioradialis Right: 2+, Patellar Left: 2 +, Patellar Right: 2+, Tricep Left: 2+, Tricep Right: 2+ - Psychiatric Exam Psychiatric exam: Normal Affect, Normal Mood - Skin Skin Exam: Dry, Intact, Normal Color, Warm Results - Vital Signs Recent Vital Signs: Last Vital Signs Temp 97.9 F 03/25/17 15:40 Pulse 74 03/25/17 15:40 Resp 20 03/25/17 15:40 BP 116/49 L 03/25/17 15:40 Pulse Ox 98 03/10/17 18:30 - Labs Result Diagrams: 03/11/17 06:53 03/16/17 12:00 Assessment & Plan (1) Auditory hallucination Assessment and Plan: 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 However, an underlying inflammatory involvement of the cortex should be ruled out. I recommend obtaining an MRI of the brain with and without contrast. If she continues to have hallucinations despite anti- psychotic medications, then we may consider going up on the steroids to treat possible auto-immune causes. Labs were reviewed and appear normal. I would recommend also obtaining B12, folate, and heavy metal screen to rule out other organic causes. Thank you very much for this consultation. Status: Acute Priority: High
[2017-03-26] MEDS: NIFEdipine 90 mg ER Tab PO SCH (08:54)
--- NOTE | 2017-03-26 09:29 | PCM.PYCHPN ---
Psychiatric Progress Note - Psychiatric Progress Note Patient seen today, length of contact: Chart reviewed, case discussed with team , patient evaluated, 35 min Patient Chief Complaint: "I'm feeling better" Problems Identified/Issues Discussed: Patient reports that she is starting to improve clinically. She states that she continues to hear intermittent AH, but that they are distant. She continues ot have paranoid delusions, but feels less stressed by them and is questioning whether there really are cameras in the hospital and in the showers. Her mood is also brighter and she is more hopeful for the future. She continues to have fluctuating insight into her psychotic symptoms. Medication Change: Yes (Zyprexa 5 mg PO AM/ 10 mg PO HS) Medical Record Reviewed: Yes Consults ordered or reviewed: Neurology consult appreciated- will obtain MRI w/ and w/o contrast Mental Status Examination - Cognitive Function Orientation: Person, Place, Situation, Time Memory: Intact Attention: WNL Concentration: WNL Association: WNL Fund of Knowledge: WN Decription of patient's judgement and insights: Poor to fair insight/ judgment - Mood Mood: Anxious - Affect Affect: Constricted - Speech Speech: Appropriate - Formal Thought Process Formal Thought Process: Hallucinations, Delusions, Paranoia Psychotic Thoughts and Behaviors: +AH, +Paranoid delusions - Suicidal Ideation Suicidal Ideation: No - Homicidal Ideation Homicidal Ideation: No Goal/Treatment Plan - Goal/Treatment Plan Need for Continued Stay: Remain at risks for inpatient hospitalization, Discharge may exacerbated symptoms Progress Toward Problem(s) and Goals/Treatment Plan: 51 yo female with psychosis, r/o medical cause of psychotic symptoms as her presentation is not entirely consistent with a primary psychotic disorder (r/o steroid induced psychosis; r/o organic/neurological cause of psychosis; r/o Lupus psychosis), continues to be psychotic with auditory hallucinations, paranoia and delusions, needs continued inpatient hospitalization for treatment and stabilization. -Individual and group therapy -Zyprexa 5 mg PO Daily/ 10 mg PO HS -Hold Prednisone as per medicine recommendations as this could be causing/ worsening her psychosis -Medicine consult appreciated -Continue Cogentin to 0.5 mg PO Q12 -Neurology consult appreciated- will obtain MRI w/ and w/o contrast Estimated Date of D/C: 03/28/17
[2017-03-26 10:53] LABS: BASO % 0.3 % (0.0-2.0); EOS % 1.3 % (0.0-4.0); HEMATOCRIT 39.3 % (34.0-47.0); LYMPH # 1.2 K/uL (1.0-4.3); LYMPH % 32.1 % (20.0-40.0); MEAN CELL VOLUME 89.6 fl (81.0-99.0); MEAN CORPUSCULAR HEMOGLOBIN 28.4 pg (27.0-31.0); MEAN CORPUSCULAR HGB CONC 31.7 g/dL (33.0-37.0); MEAN PLATELET VOLUME 9.2 fl (7.2-11.7); MONO # 0.3 K/uL (0.0-0.8); MONO % 7.4 % (0.0-10.0); NEUT # 2.2 K/uL (1.8-7.0); NEUT % 58.9 % (50.0-75.0); RED CELL DISTRIBUTION WIDTH 15.2 % (11.5-14.5); WHITE BLOOD COUNT 3.7 K/uL (4.8-10.8)
[2017-03-26 11:03] LABS: ALB/GLOB RATIO 1.2 (1.0-2.1); ALKALINE PHOSPHATASE 46 U/L (38-126); ALT/SGPT 15 U/L (9-52); AST/SGOT 21 U/L (14-36); BILIRUBIN,TOTAL 0.4 mg/dl (0.2-1.3); BLOOD UREA NITROGEN 21 mg/dl (7-17); CALCIUM 9.2 mg/dL (8.4-10.2); CARBON DIOXIDE 26 mmol/L (22-30); CHLORIDE 103 mmol/L (98-107); GFR AFRICAN-AMERICAN > 60; GLUCOSE,RANDOM 71 mg/dL (65-105); SODIUM 138 mmol/l (132-148); TOTAL PROTEIN 6.8 G/DL (6.3-8.2)
[2017-03-26 11:09] LABS: POTASSIUM 4.4 MMOL/L (3.6-5.0)
[2017-03-26] MEDS ORDERED: Gadodiamide 287 MG/ML VIAL (15ML) IV ONE (13:39)
[2017-03-27] MEDS: NIFEdipine 90 mg ER Tab PO SCH (08:33)
--- NOTE | 2017-03-27 10:58 | PCM.PYCHPN ---
Psychiatric Progress Note - Psychiatric Progress Note Patient seen today, length of contact: Chart reviewed, case discussed with team , patient evaluated, 35 min Patient Chief Complaint: "I'm getting better" Problems Identified/Issues Discussed: Patient reports that she believes the Zyprexa is helping her. She reports that the voices are fading, but she continues to have auditory hallucinations and paranoid delusions that people are following her with a camera. She continues to shower in the dark due to these concerns. Patient was unable to tolerate the MRI due to anxiety. Medication Change: Yes (Increase Zyprexa to 10 mg PO Q12 hr) Medical Record Reviewed: Yes Mental Status Examination - Cognitive Function Orientation: Person, Place, Situation, Time Memory: Intact Attention: WNL Concentration: WNL Association: WNL Fund of Knowledge: [facility] Decription of patient's judgement and insights: Poor to fair insight/ judgment - Mood Mood: Anxious - Affect Affect: Constricted - Speech Speech: Appropriate - Formal Thought Process Formal Thought Process: Hallucinations, Delusions, Paranoia Psychotic Thoughts and Behaviors: +AH, +Paranoid delusions - Suicidal Ideation Suicidal Ideation: No - Homicidal Ideation Homicidal Ideation: No Goal/Treatment Plan - Goal/Treatment Plan Need for Continued Stay: Remain at risks for inpatient hospitalization, Discharge may exacerbated symptoms Progress Toward Problem(s) and Goals/Treatment Plan: 51 yo female with psychosis, r/o medical cause of psychotic symptoms as her presentation is not entirely consistent with a primary psychotic disorder (r/o steroid induced psychosis; r/o organic/neurological cause of psychosis; r/o Lupus psychosis), continues to be psychotic with auditory hallucinations, paranoia and delusions, needs continued inpatient hospitalization for treatment and stabilization. -Individual and group therapy -Increase Zyprexa to 10 mg PO Daily/ 10 mg PO HS -Hold Prednisone as per medicine recommendations as this could be causing/ worsening her psychosis -Medicine consult appreciated -Continue Cogentin to 0.5 mg PO Q12 -Neurology consult appreciated- patient refused the MRI due to anxiety Estimated Date of D/C: 04/01/17
[2017-03-28] MEDS: NIFEdipine 90 mg ER Tab PO SCH (08:36)
--- NOTE | 2017-03-28 08:51 | PCM.PYCHPN ---
Psychiatric Progress Note - Psychiatric Progress Note Patient seen today, length of contact: Chart reviewed, case discussed with team , patient evaluated, 35 min Patient Chief Complaint: "I'm getting better" Problems Identified/Issues Discussed: Patient continues to have auditory hallucinations but states that they are diminishing. She reports that she believes the Zyprexa is helping her. No adverse effects reports. She is less distressed by her paranoid delusions. Medication Change: Yes (Zyprexa 20 mg PO Daily) Medical Record Reviewed: Yes Mental Status Examination - Cognitive Function Orientation: Person, Place, Situation, Time Memory: Intact Attention: WNL Concentration: WNL Association: [facility] Fund of Knowledge: [facility] Decription of patient's judgement and insights: improving insight/ judgment - Mood Mood: Anxious - Affect Affect: Constricted - Speech Speech: Appropriate - Formal Thought Process Formal Thought Process: Hallucinations, Delusions, Paranoia Psychotic Thoughts and Behaviors: +AH, +Paranoid delusions - Suicidal Ideation Suicidal Ideation: No - Homicidal Ideation Homicidal Ideation: No Goal/Treatment Plan - Goal/Treatment Plan Need for Continued Stay: Remain at risks for inpatient hospitalization, Discharge may exacerbated symptoms Progress Toward Problem(s) and Goals/Treatment Plan: 51 yo female with psychosis, r/o medical cause of psychotic symptoms as her presentation is not entirely consistent with a primary psychotic disorder (r/o steroid induced psychosis; r/o organic/neurological cause of psychosis; r/o Lupus psychosis), continues to be psychotic with auditory hallucinations, paranoia and delusions, needs continued inpatient hospitalization for treatment and stabilization. -Individual and group therapy -Increase Zyprexa to 20 mg PO Daily -Hold Prednisone as per medicine recommendations as this could be causing/ worsening her psychosis -Medicine consult appreciated -Stop Cogentin 0.5 mg PO Q12, patient has not reported any dystonic reactions and she is currently reporting constipation therefore will discontinue Cogentin and monitor patient -Neurology consult appreciated- patient refused the MRI due to anxiety Estimated Date of D/C: 04/01/17
[2017-03-29] MEDS: NIFEdipine 90 mg ER Tab PO SCH (08:18)
--- NOTE | 2017-03-29 08:24 | PCM.PYCHPN ---
Psychiatric Progress Note - Psychiatric Progress Note Patient seen today, length of contact: Chart reviewed, case discussed with team , patient evaluated, 35 min Patient Chief Complaint: "I'm still hearing voices" Problems Identified/Issues Discussed: Patient continues to have auditory hallucinations but states that they are diminishing. She reports they were worse last night than they are today, but still overall improved since admission. No adverse effects to Zyprexa reported. She is less distressed by her paranoid delusions. Medication Change: No Medical Record Reviewed: Yes Mental Status Examination - Cognitive Function Orientation: Person, Place, Situation, Time Memory: Intact Attention: WNL Concentration: WNL Association: [facility] Fund of Knowledge: [facility] Decription of patient's judgement and insights: improving insight/ judgment - Mood Mood: Anxious - Affect Affect: Constricted - Speech Speech: Appropriate - Formal Thought Process Formal Thought Process: Hallucinations, Delusions, Paranoia Psychotic Thoughts and Behaviors: +AH, +Paranoid delusions - Suicidal Ideation Suicidal Ideation: No - Homicidal Ideation Homicidal Ideation: No Goal/Treatment Plan - Goal/Treatment Plan Need for Continued Stay: Remain at risks for inpatient hospitalization, Discharge may exacerbated symptoms Progress Toward Problem(s) and Goals/Treatment Plan: 51 yo female with psychosis, r/o medical cause of psychotic symptoms as her presentation is not entirely consistent with a primary psychotic disorder (r/o steroid induced psychosis; r/o organic/neurological cause of psychosis; r/o Lupus psychosis), continues to be psychotic with auditory hallucinations, paranoia and delusions, needs continued inpatient hospitalization for treatment and stabilization. -Individual and group therapy -Continue Zyprexa 20 mg PO Daily -Hold Prednisone as per medicine recommendations as this could be causing/ worsening her psychosis -Medicine consult appreciated -Neurology consult appreciated- patient refused the MRI due to anxiety Estimated Date of D/C: 04/01/17
[2017-03-30] MEDS: NIFEdipine 90 mg ER Tab PO SCH (08:35)
--- NOTE | 2017-03-30 12:36 | PCM.PYCHPN ---
Psychiatric Progress Note - Psychiatric Progress Note Patient seen today, length of contact: discussed with team Patient Chief Complaint: i feel the voices are a little better Problems Identified/Issues Discussed: no c/o medication side effects. still hearing voices, but feels less bothered by them. sitting in day area watching tv without any agitation. reports improved sleep. Medication Change: No Medical Record Reviewed: Yes Mental Status Examination - Cognitive Function Orientation: Person, Place, Situation, Time Memory: Intact Attention: WNL Concentration: WNL Association: WNL Fund of Knowledge: [facility] Decription of patient's judgement and insights: fair - Mood Mood: Anxious - Affect Affect: Constricted - Speech Speech: Appropriate - Formal Thought Process Formal Thought Process: Hallucinations, Delusions, Paranoia - Suicidal Ideation Suicidal Ideation: No - Homicidal Ideation Homicidal Ideation: No Goal/Treatment Plan - Goal/Treatment Plan Need for Continued Stay: Remain at risks for inpatient hospitalization, Discharge may exacerbated symptoms Progress Toward Problem(s) and Goals/Treatment Plan: schizoaffective disorder continue current treatment Estimated Date of D/C: 04/01/17
[2017-03-31] MEDS: NIFEdipine 90 mg ER Tab PO SCH (08:17)
--- NOTE | 2017-03-31 12:54 | PCM.PYCHPN ---
Psychiatric Progress Note - Psychiatric Progress Note Patient seen today, length of contact: discussed with team Patient Chief Complaint: i feel ok Problems Identified/Issues Discussed: no c/o medication side effects. less preoccupied with voices. sno bizarre behavior or agitation. reports improved sleep. Medication Change: No Medical Record Reviewed: Yes Mental Status Examination - Cognitive Function Orientation: Person, Place, Situation, Time Memory: Intact Attention: WNL Concentration: WNL Association: WNL Fund of Knowledge: [facility] Decription of patient's judgement and insights: fair - Mood Mood: Anxious - Affect Affect: Constricted - Speech Speech: Appropriate - Formal Thought Process Formal Thought Process: Hallucinations, Delusions, Paranoia - Suicidal Ideation Suicidal Ideation: No - Homicidal Ideation Homicidal Ideation: No Goal/Treatment Plan - Goal/Treatment Plan Need for Continued Stay: Remain at risks for inpatient hospitalization, Discharge may exacerbated symptoms Progress Toward Problem(s) and Goals/Treatment Plan: schizoaffective disorder continue current treatment discharge home [facility] Estimated Date of D/C: 04/01/17
[2017-03-31 15:29] VITALS: TEMP 97.7
[2017-04-01 05:51] VITALS: RESP 18
[2017-04-01] MEDS: NIFEdipine 90 mg ER Tab PO SCH (09:26)
[2017-04-01 09:28] VITALS: BP 129/84; PULSE 98
--- NOTE | 2017-04-01 11:43 | PCM.PYCHDC ---
Mental Status Examination - Mental Status Examination Orientation: Person, Place, Situation, Time Memory: Intact Mood: Anxious (regarding discharge) Affect: Blunted Speech: Appropriate Attention: WNL Concentration: WNL Association: WNL Fund of Knowledge: WNL Formal Thought Process: No Impairment Description of patient's judgement and insight: fair Psychotic Thoughts and Behaviors: reports some auditory hallucinations that are much improved over his admission, less paranoid Suicidal Ideation: No Current Homicidal Ideation?: No Plan: pt denies any suicidal or homicidal thoughts Discharge Summary - Discharge Note Reason for Hospitalization: auditory hallucinations, psychosis, suicidal thoughts Psychiatric History (includes Medical, Family, Personal Hx): history of schizoaffective disorder, history of lupus Consultations:: List each consultation separately and include: 1. Reason for request. 2. Findings. 3. Follow-up Consultations: seen by hospitalist Summary of Hospital Course include:: 1. Description of specific treatment plan utilized for patients during their course of treatmen. 2. Summarize the time- course for resolution of acute symptoms and/or regressed behaviors. 3. Describe issues identified and worked on during hospitalization. 4. Describe medication utilized. 5. Describe medical problems identified and treated. 6. Reassessment of suicide risk Summary of Hospital Course: pt was admitted to [facility] and oriented to the unit. pt was placed on routine safety protocols. pt was started on seroquel, but this was changed by the treating provider to zyprexa and the dose was titrated up to 20mg daily. he predisone was held during the admission and her psychotic symptoms- ah and paranoid thoughts improved. she was denying any suicidal or homicidal thoughts at the time of discharge. - Final Diagnosis (DSM 5) Condition upon Discharge: STABLE DSM 5: schizoaffective disorder Disposition: HOME/ ROUTINE Follow-up Treatment Plan: follow up with aftercare appointments as directed take medications as prescribed do not use alcohol, tobacco or other illicit substances call 911 if any suicidal or homicidal thoughts Prescriptions/Medication Reconciliation: Benztropine [Cogentin] 0.5 mg PO BID #60 tab hydroCHLOROthiazide [Microzide] 12.5 mg PO DAILY #30 cap Hydroxychloroquine Sulfate [Plaquenil] 1 tab PO DAILY #30 Losartan [Cozaar] 50 mg PO DAILY #30 tab NIFEdipine ER [Procardia XL] 90 mg PO DAILY #30 ter Olanzapine [Zyprexa] 20 mg PO DAILY #30 tablet - Smoking Cessation Smoking Cessation Medication prescribed: No Reason for not providing: declines - Antipsychotic Medications Pt discharged on 2 or more routine antipsychotic medications: No
== END 2017-04-01 13:15 | disposition home or self-care (01) | DRG 885 ==
LOC: H.ER 13:49 → H.ERHOLD 16:41 → H.STEP 20:36
PROVIDERS: ADMIT Psychiatry & Neurology Psychiatry; ATTEND Psychiatry & Neurology Psychiatry
PROC: GZ51ZZZ Individual Psychotherapy, Behavioral (ICD-10-PCS; principal; 2017-03-10)
DX: F25.9 Schizoaffective disorder, unspecified (principal); M32.9 Systemic lupus erythematosus, unspecified; R45.851 Suicidal ideations; N39.0 Urinary tract infection, site not specified; R44.0 Auditory hallucinations; F22 Delusional disorders; I12.9 Hypertensive chronic kidney disease with stage 1 through stage 4 chronic kidney disease, or unspecified chronic kidney disease; F32.9 Major depressive disorder, single episode, unspecified; F41.9 Anxiety disorder, unspecified; K59.00 Constipation, unspecified; N18.9 Chronic kidney disease, unspecified; K29.70 Gastritis, unspecified, without bleeding